=== PATIENT | female | born 2000 | race Caucasian/White ===

== ENCOUNTER 2022-12-03 21:56 | Observation (INO) | payer SELFPAY ==
[~2022-12-03] VITALS: Ht 165.1 cm; Wt 55.4 kg
--- NOTE | 2022-12-03 22:25 | NUR ---
PT ARRIVED TO ROOM 350 VIA STRETCHER & AMBULATED TO BED. VSS. A&O X4. C/O ABD & LOWER BACK PAIN 08/10 - PT STATES A HOT PACK HAS HELPED, PROVIDED WARM BLANKET. C/O SOME NAUSEA BUT NO EMESIS. INT ON ARRIVAL TO RIGHT AC. EDUCATED PT ABOUT STRAINING URINE. ORIENTED PT TO ROOM & CALL LIGHT. BED LOWERED & CALL LIGHT IN REACH.
[2022-12-04] VITALS (8 sets, daily range): BP systolic 101–113; BP diastolic 58–67; PULSE 61–91; TEMP 97.8–98.3
--- NOTE | 2022-12-04 00:10 | NUR ---
GIVEN PRN ZOFRAN FOR C/O NAUSEA. C/O SEVERE ABD & LOWER BACK PAIN WORSENING WITH MOVEMENT, STARTED ON MORPHINE SUPERVISOR PACKING & VERIFIED BY 2 NURSES - SEE MAR. EDUCATED PT ON NPO STATUS. BED LOWERED & CALL LIGHT IN REACH. DENYING FURTHER NEEDS AT THIS TIME.
[2022-12-04] MEDS ORDERED: SPRINTEC 35 MCG1 TAB PO (00:55)
[2022-12-04] MEDS ORDERED: SYNTHROID0.088 MG/T PO (00:56)
--- NOTE | 2022-12-04 02:00 | NUR ---
PT CONTINUES TO HAVE NAUSEA & HAS HAD EMESIS X2. DR JOHNSON NOTIFIED & NEW ORDER FOR PRN PHENERGAN GIVEN.
--- NOTE | 2022-12-04 07:53 | NUR ---
Report received from the night nurse, Sherice LARSON.
--- NOTE | 2022-12-04 09:05 | NUR ---
Patient up walking in room and to the bathroom. Patient voided about 200ml of clear yellow urine. Urine was strained and no stones noted. PLAN REP pump infusing without difficulty. Patient reports of discomfort at right flank and rated pain level. Patient is using the customer resource specialist appropriately. Patient has no concern at this time. Family at bedside.
--- NOTE | 2022-12-04 10:42 | NUR ---
Initial visit; Patient and mom thanked Slot Attendant for looking in on them and offering God's blessings.
--- NOTE | 2022-12-04 11:22 | NUR ---
Patient voided, strained urine and noted a small size of stone, ROSALIA Duggan notified.
--- NOTE | 2022-12-04 14:56 | NUR ---
Patient's discharge instruction given, PHARMACY INFORMATICIST discontinued, INT removed. Patient denies discomfort at right flank. Reminded patient to call for any issues that arises. Patient verbalized understanding and escorted to the ED entrance at 1330 accompanied by mother.
== END 2022-12-04 13:30 | disposition home or self-care (01) ==
LOC: SURG 21:56
PROVIDERS: ADMIT Urology
DX: N20.1 Calculus of ureter (principal); F17.200 Nicotine dependence, unspecified, uncomplicated
CPT/HCPCS: G0378; G0379; J2270; J2405; J2550; J7030